=== PATIENT | male | born 1995 ===

== ENCOUNTER 2024-07-14 00:38 | Emergency (ER) | payer BC ==
[2024-07-14] MEDS: Clindamycin HCl 150 MG Cap PO ONE (00:49)
[2024-07-14] MEDS: Ibuprofen 600 MG Tab PO ONE (01:01)
== END 2024-07-14 01:03 | disposition home or self-care (01) ==
LOC: MW.ED 00:38
DX: K04.7 Periapical abscess without sinus (principal)
CPT/HCPCS: 99283; A9270; 99282